=== PATIENT | male | born 2000 | race Caucasian/White ===

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

== ENCOUNTER → 2024-06-26 | Outpatient (CLI) | payer OTHER ==
[~2024-06-26] VITALS: Ht 180.3 cm; Wt 100.0 kg
[~2024-06-26] MED LIST changes: +Ketorolac 30 MG/ML VIAL IV ONE; +NS 1,000 ML IV SCH; +diphenhydrAMINE 50 MG/ML 1 ML VIAL IJ ONE; +diphenhydrAMINE 50 MG/ML 1 ML VIAL IV ONE
[2024-06-26 16:30] VITALS: BP 127/71
== END ==
LOC: AMSURD 16:17
DX: G43.909 Migraine, unspecified, not intractable, without status migrainosus (principal)
CPT/HCPCS: J0780; J1200; J1885; J7030